=== PATIENT | male | born 1975 | race Two or more races ===

== ENCOUNTER 2024-06-06 08:33 | Inpatient (IN) | payer MEDICAID, OTHER ==
[~2024-06-06] VITALS: Ht 167.6 cm; Wt 102.2 kg
[2024-06-06 01:00] VITALS: BP 137/85; PULSE 80; RESP 13; TEMP 98.1; O2SAT 95
[2024-06-06 10:24] LABS: Basophils # (auto) 0 10 ^3/uL (0-0.2); Basophils % (auto) 0.6 % (0.0-2.0); Eosinophils # (auto) 0.1 10 ^3/uL (0-0.8); Eosinophils % (auto) 1.6 % (0.0-7.0); Hemoglobin 18.1 g/dL (13.5-17.5); Lymphocytes # (auto) 1.7 10 ^3/uL (0.4-5.4); Mean Corpuscular Hemoglobin 33.5 pg (28.0-32.0); Mean Corpuscular Hgb Conc. 35.5 g/dL (32.0-36.0); Mean Corpuscular Volume 94.4 fL (80.0-100.0); Monocytes # (auto) 0.4 10 ^3/uL (0-1.3); Monocytes % (auto) 6.8 % (0.0-12.0); Neutrophils # (auto) 3.6 10 ^3/uL (1.6-8.6); Nucleated Red Blood Cells % 0.6 %; Platelet Count (auto) 178 10^3/uL (140-450); Red Cell Distribution Width 12.7 % (11.8-14.3); White Blood Cell 5.8 10^3/uL (4.4-10.8)
[2024-06-06 10:32] LABS: Urine Bacteria None Seen /hpf (None Seen)
[2024-06-06 10:43] LABS: Urine Blood Negative /uL (Negative); Urine Clarity Clear (Clear); Urine Color Yellow (Yellow); Urine Protein, UAD Negative (Negative); Urine Specific Gravity 1.046 (1.001-1.035); Urine Urobilinogen Normal (Negative); Urine WBC <1 /hpf (0 - 3); Urine pH 5.5 (5.0-9.0)
--- NOTE | 2024-06-06 10:57 | ED.PDOC ---
History of Present Illness HPI Comments 48-year-old male who comes in with chief complaint of elevated blood sugar. The patient does not have diabetes but he states that his grandmother does. States that over the past several days he has been having some polydipsia and polyuria. The patient also states that when he stands he feels increased weakness. He denies any chest pain or shortness for breath. The patient checked his blood sugar and was 410 yesterday so he came to the emergency department's for evaluation. Chief Complaint: Hyperglycemia Time Seen by MD: 10:37 Reviewed Notes: Nurses Notes, Medications, Allergies (Allergies to penicillin) Allergies: Coded Allergies: Penicillins (Verified Allergy, Unknown, 06/06/24) Information Source: Patient Mode of Arrival: Ambulatory Severity: Moderate Timing: Days Duration: Since onset Prehospital treatment: None Associated signs and symptoms Generalized weakness with the polydipsia polyuria Past Medical History PAST MEDICAL HISTORY: Denies Surgical History: Denies all surgeries Family History Family History: Family hx of DM Social History Smoker: Non-Smoker Alcohol: Occasionally Drugs: Denies Drug Use Lives In: Home Constitutional: reports: weakness; denies: chills, diaphoresis, fatigue, fever, malaise, sweats, others EENTM: denies: blurred vision, double vision, ear bleeding, ear discharge, ear drainage, ear pain, ear ringing, eye pain, eye redness, hearing loss, mouth pain, mouth swelling, nasal discharge, nose bleeding, nose congestion, nose pain, photophobia, tearing, throat pain, throat swelling, voice changes, others Respiratory: denies: cough, hemoptysis, orthopnea, SOB at rest, shortness of breath, SOB with excertion, stridor, wheezing, others Cardiovascular: denies: chest pain, dizzy spells, diaphoresis, Dyspnea on exertion, edema, irregular heart beat, left arm pain, lightheadedness, palpitations, PND, syncope, others Gastrointestinal: denies: abdomen distended, abdominal pain, blood streaked bowels, constipated, diarrhea, dysphagia, difficulty swallowing, hematemesis, melena, nausea, poor appetite, poor fluid intake, rectal bleeding, rectal pain, vomiting, others Genitourinary: denies: burning, dysuria, flank pain, frequency, hematuria, incontinence, penile discharge, penile sore, pain, testicle pain, testicle swelling, urgency, others Neurological: denies: dizziness, fainting, headache, left sided numbness, left sided weakness, numbness, paresthesia, pre-existing deficit, right sided numbness, right sided weakness, seizure, speech problems, tingling, tremors, weakness, others Musculoskeletal: denies: back pain, gout, joint pain, joint swelling, muscle pain, muscle stiffness, neck pain, others Integumetry: denies: bruises, change in color, change in hair/nails, dryness, laceration, lesions, lumps, rash, wounds, others Allergic/Immunocompromised: denies: Difficulty Healing, Frequent Infections, Hives, Itching, others Hematologic/Lymphatic: denies: anemia, blood clots, easy bleeding, easy bruising, swollen glands, others Endocrine: reports: excessive thirst, excessive urination; denies: excessive hunger, excessive sweating, flushing, intolerance to cold, intolerance to heat, unexplained weight gain, unexplained weight loss, others Psychiatric: denies: anxiety, bipolar disorder, depression, hopeless, panic disorder, schizophrenia, sleepless, suicidal, others Physical Exam General Appearance: Mild Distress HEENT: Normal ENT Inspection, Pharynx Normal, TMs Normal Neck: Full Range of Motion, Non-Tender, Normal, Normal Inspection Respiratory: Chest Non-Tender, Lungs Clear, No Accessory Muscle Use, No Respiratory Distress, Normal Breath Sounds Cardiovascular: No Edema, No JVD, No Murmur, No Gallop, Normal Peripheral Pulses, Regular Rate/Rhythm Breast Exam: Deferred Gastrointestinal: No Organomegaly, Non Tender, No Pulsatile Mass, Normal Bowel Sounds, Soft Genitalia: Deferred Pelvic: Deferred Rectal: Deferred Extremities: No calf tenderness, Normal capillary refill, Normal inspection, Normal range of motion, Non-tender, No pedal edema Musculoskeletal : Apperance: Normal Neurologic: Alert, pie baker II-XII nml as Tested, No Motor Deficits, Normal Affect, Normal Mood, No Sensory Deficits Cerebellar Function: Normal Reflexes: Normal Skin: Dry, Normal Color, Warm Lymphatic: No Adenopathy Was a procedure done? Was a procedure done?: No Differential Dx Considerations may include: UTI, new onset diabetes, DKA X-Ray, Labs, Meds, VS Vital Signs Date Time Temp Pulse Resp B/P (MAP) Pulse Ox O2 Delivery O2 Flow Rate FiO2 12/4/24 11:14 79 16 96 Room Air 06/06/24 11:14 98.1 79 17 166/124 (138) 96 98.1 06/06/24 08:47 97.5 89 18 167/124 (138) 96 06/06/24 08:47 97.5 89 18 167/124 (138) 96 97.5 Lab Test 06/06/24 10:08 06/06/24 09:58 06/06/24 08:45 Range/Units Urine Color Yellow Yellow Urine Clarity Clear Clear Urine pH 5.5 5.0-9.0 Urine Specific [place] 1.046 H 1.001-1.035 Urine Protein Negative Negative Urine Ketones 1+ H Negative Urine Blood Negative Negative /uL Urine Nitrite Negative Negative Urine Bilirubin Negative Negative Urine Urobilinogen Normal Negative mg/dL Urine Leukocyte Esterase Negative Negative /uL Urine RBC <1 0 - 3 /hpf Urine WBC <1 0 - 3 /hpf Urine Squamous Epithelial Cells None seen <5 /hpf Urine Bacteria None seen None Seen /hpf Urine Glucose 4+ H Normal mg/dL White Blood Count 5.8 4.4-10.8 10^3/uL Red Blood Count 5.40 4.5-5.90 10^6/uL Hemoglobin 18.1 H 13.5-17.5 g/dL Hematocrit 51.0 41.0-53.0 % Mean Corpuscular Volume 94.4 80.0-100.0 fL Mean Corpuscular Hemoglobin 33.5 H 28.0-32.0 pg Mean Corpuscular Hemoglobin Concent 35.5 32.0-36.0 g/dL Red Cell Distribution Width 12.7 11.8-14.3 % Platelet Count 178 140-450 10^3/uL Mean Platelet Volume 8.0 6.9-10.8 fL Neutrophils (%) (Auto) 62.0 37.0-80.0 % Lymphocytes (%) (Auto) 29.0 10.0-50.0 % Monocytes (%) (Auto) 6.8 0.0-12.0 % Eosinophils (%) (Auto) 1.6 0.0-7.0 % Basophils (%) (Auto) 0.6 0.0-2.0 % Neutrophils # (Auto) 3.6 1.6-8.6 10 ^3/uL Lymphocytes # (Auto) 1.7 0.4-5.4 10 ^3/uL Monocytes # (Auto) 0.4 0-1.3 10 ^3/uL Eosinophils # (Auto) 0.1 0-0.8 10 ^3/uL Basophils # (Auto) 0 0-0.2 10 ^3/uL Nucleated Red Blood Cells 0.6 % Sodium Level 136 136-145 mmol/L Potassium Level 4.4 3.5-5.1 mmol/L Chloride Level 101 98-107 mmol/L Carbon Dioxide Level 29 20-31 mmol/L Anion Gap 6 5-15 Blood Urea Nitrogen 8 L 9-23 mg/dL Creatinine 0.85 0.700-1.30 mg/dL Glomerular Filtration Rate Calc 107 >90 mL/min BUN/Creatinine Ratio 9.4 L 10.0-20.0 Serum Glucose 327 H 74-106 mg/dL Calcium Level 10.4 8.7-10.4 mg/dL Total Bilirubin 1.2 H 0.2-1.0 mg/dL Aspartate Amino Transferase (AST) 108 H 13-40 U/L Alanine Aminotransferase (ALT) 201 H 7-40 U/L Alkaline Phosphatase 100 46-116 U/L Total Protein 7.5 5.7-8.2 g/dL Albumin 4.5 3.2-4.8 g/dL Beta-Hydroxybutyric Acid 0.496 H < 0.4 mmol/L POC Glucose 364 H 70-106 mg/dl Current Medications Medications (Trade) Dose Ordered Sig/Francesca Route Start Time Stop Time Status Last Admin Sodium Chloride 1,000 ml @ 1,000 mls/hr Q1H ONCE IV 06/06/24 11:00 06/06/24 11:59 DC 06/06/24 11:13 IV Hep-Lock was established The patient was given a 1 L bolus of normal saline The patient was given insulin 5 units IV push The urine test is negative for infection the positive for 4+ glucose The CBC and chemistry panel is within normal limits except for hyperglycemia at 327 The total bilirubin is elevated at 1.2 The beta hydroxybutyric acid is also elevated At this time we are going to admit the patient to the hospitalist. The patient's seems to be feeling weak and had a near syncopal episode upon standing We have discussed the findings with the patient and they are in agreement with the management. Time of 1ST Reevaluation: 10:56 Reevaluation 1ST: Unchanged Patient Education/Counseling: Diagnosis, Treatment, Prognosis Family Education/Counseling: No Family Present Departure 1 Departure Time of Disposition: 12:01 Impression: Primary Impression: New onset type 2 diabetes mellitus Additional Impression: Near syncope Disposition: 09 ADMITTED INPATIENT Admit to: Med Surg Condition: Fair Critical Care Note Critical Care Time?: No Stability Stability form required: Yes Unstable for transfer: ED Physician Assesment (Clinical assesment) Heart Score Heart Score: Heart Score Response (Comments) Value History N/A 0 EKG N/A 0 Age N/A 0 Risk Factors N/A 0 Troponin N/A 0 Total 0 ORTEGA PINEDO MD Jun 06, 2024 10:57
[2024-06-06] MEDS: SODIUM CHLORIDE 0.9% 1,000 ML IV ONE (11:13)
[2024-06-06 11:19] LABS: Albumin 4.5 g/dL (3.2-4.8); Alkaline Phosphatase 100 U/L (46-116); Anion Gap 6 (5-15); BUN/Creatinine Ratio 9.4 (10.0-20.0); Calcium 10.4 mg/dL (8.7-10.4); Carbon Dioxide 29 mmol/L (20-31); Chloride 101 mmol/L (98-107); Potassium 4.4 mmol/L (3.5-5.1); Sodium 136 mmol/L (136-145)
[2024-06-06 11:20] LABS: Bilirubin, Total 1.2 mg/dL (0.2-1.0); Total Protein 7.5 g/dL (5.7-8.2)
[2024-06-06 11:32] LABS: Alanine Aminotransferase 201 U/L (7-40); Aspartate Aminotransferase 108 U/L (13-40); Blood Urea Nitrogen 8 mg/dL (9-23); Glucose 327 mg/dL (74-106)
[2024-06-06] MEDS: InsuLIN REG 1unit/0.01ml Soln (100units/ml) IV ONE (12:20)
[2024-06-06] MEDS ORDERED: HYDROcodone-ACET 5/325MG TAB PO PRN (14:00)
[2024-06-06] MEDS ORDERED: ACETAMINOPHEN 325 MG TAB PO PRN (14:00)
[2024-06-06] MEDS ORDERED: LORazepam 2MG/ML-1ML VIAL IV PRN (14:00)
[2024-06-06] MEDS ORDERED: ONDANSETRON HCL 4 MG/2 ML VIAL IV PRN (14:00)
[2024-06-06] MEDS ORDERED: DOCUSATE SOD 100 MG CAP PO PRN (14:00)
[2024-06-06] MEDS ORDERED: DEXTROSE (50%) 50ML SYRG IV PRN (14:00)
--- NOTE | 2024-06-06 14:12 | DVHHP2 ---
History of Present Illness Reason for Visit: Hyperglycemia History of Present Illness Bj Baxter, is a 48-year-old male with no significant past medical history who comes in with complaints of elevated blood sugar levels. Patient states that he has been experiencing weakness, polydipsia, and polyuria. His grandmother is diabetic so he checked his blood sugar level last night and it was 403, prompting him to come to the hospital today. He also states that he has lost about 40 Lbs in the last 2-3 months without trying. Past Surgical History: None Family History: DM Smoke: No ALCOHOL: heavy (6-9 IPA beers/night) Drugs: None Lives: with Family Review of Systems Constitutional: Yes: Weakness, Malaise; No: Fever, Chills, Sweats, Other Eyes: No: Pain, Vision change, Conjunctivae inflammation, Eyelid inflammation, Other, Redness ENT: No: Ear pain, Ear discharge, Nose pain, Nose discharge, Nose congestion, Mouth pain, Mouth swelling, Throat pain, Throat swelling, Other Respiratory: No: Cough, Dry, Shortness of breath, SOB with excertion, Wheezing, Hemoptysis, Pleuritic Pain, Sputum, Wheezing, Other Cardiovascular: No: Chest Pain, Palpitations, Orthopnea, Paroxysmal Noc. Dyspnea, Edema, Lt Headedness, Other Gastrointestinal: No: Nausea, Vomiting, Abdominal Pain, Diarrhea, Constipation, Melena, Hematochezia, Other Genitourinary: No Dysuria; Frequency; No Incontinence, No Hematuria, No Retention; Other (Polydipsia and ployurria) Musculoskeletal: No: other, neck pain, shoulder pain, arm pain, back pain, hand pain, leg pain, foot pain Skin: No: Rash, Lesions, Jaundice, Bruising, Other Neurological: No: Weakness, Numbness, Incoordination, Change in speech, Confusion, Seizures, Other Allergies: Coded Allergies: Penicillins (Verified Allergy, Unknown, 06/06/24) Medications Current Medications Medications Dose Ordered Sig/Francesca Route Start Time Stop Time Status Last Admin Dose Admin Acetaminophen/ Hydrocodone Bitart 1 tab Q4HP PRN PO 06/06/24 14:00 Ondansetron HCl 4 mg Q4HP PRN IV 06/06/24 14:00 Docusate Sodium 100 mg BIDPRN PRN PO 06/06/24 14:00 Acetaminophen 650 mg Q6HP PRN PO 06/06/24 14:00 Diagnostic Test (Pha) 1 strip ACHS 06/06/24 17:00 UNV Insulin Human Regular HS SC 06/06/24 22:00 UNV Insulin Human Regular AC SC 06/06/24 17:00 UNV Dextrose 50 ml UD PRN IV 06/06/24 14:00 UNV Chlordiazepoxide HCl 50 mg Q8H PO 06/06/24 14:00 06/07/24 06:01 UNV Chlordiazepoxide HCl 50 mg Q12HR PO 06/07/24 10:00 06/07/24 22:01 UNV Chlordiazepoxide HCl 25 mg Q12HR PO 06/08/24 10:00 06/08/24 22:01 UNV Chlordiazepoxide HCl 25 mg QAM PO 06/09/24 07:00 06/09/24 07:01 UNV Thiamine HCl 100 mg DAILY PO 06/07/24 10:00 UNV Folic Acid 1 mg DAILY PO 06/07/24 10:00 UNV Multivitamins 1 tab DAILY PO 06/07/24 10:00 UNV Lorazepam 1 mg Q2HPRN PRN IV 06/06/24 14:00 UNV Exam Vital Signs Vital Signs Date Time Temp Pulse Resp B/P (MAP) Pulse Ox O2 Delivery O2 Flow Rate FiO2 06/06/24 11:14 79 16 96 Room Air 06/06/24 11:14 98.1 166/124 (138) 98.1 General Appearance: Alert, Oriented X3, Cooperative, moderate distress HEENT: Atraumatic, PERRLA Respiratory: Clear to auscultation, Normal air movement Cardiovascular: Regular rate, Normal S1, Normal S2 Abdominal: Normal bowel sounds, Soft, No tenderness Extremities: No clubbing, No cyanosis, No edema, Normal pulses Skin: No rashes, No breakdown, No significant lesion Neuro: Normal gait, Normal speech, Strength at 5/5 X4 ext Psych/Mental Status: Mental status NL, Mood NL Labs/Xrays Labs Test 06/06/24 10:08 06/06/24 09:58 06/06/24 08:45 Range/Units Urine Color Yellow Yellow Urine Clarity Clear Clear Urine pH 5.5 5.0-9.0 Urine Specific [place] 1.046 H 1.001-1.035 Urine Protein Negative Negative Urine Ketones 1+ H Negative Urine Blood Negative Negative /uL Urine Nitrite Negative Negative Urine Bilirubin Negative Negative Urine Urobilinogen Normal Negative mg/dL Urine Leukocyte Esterase Negative Negative /uL Urine RBC <1 0 - 3 /hpf Urine WBC <1 0 - 3 /hpf Urine Squamous Epithelial Cells None seen <5 /hpf Urine Bacteria None seen None Seen /hpf Urine Glucose 4+ H Normal mg/dL White Blood Count 5.8 4.4-10.8 10^3/uL Red Blood Count 5.40 4.5-5.90 10^6/uL Hemoglobin 18.1 H 13.5-17.5 g/dL Hematocrit 51.0 41.0-53.0 % Mean Corpuscular Volume 94.4 80.0-100.0 fL Mean Corpuscular Hemoglobin 33.5 H 28.0-32.0 pg Mean Corpuscular Hemoglobin Concent 35.5 32.0-36.0 g/dL Red Cell Distribution Width 12.7 11.8-14.3 % Platelet Count 178 140-450 10^3/uL Mean Platelet Volume 8.0 6.9-10.8 fL Neutrophils (%) (Auto) 62.0 37.0-80.0 % Lymphocytes (%) (Auto) 29.0 10.0-50.0 % Monocytes (%) (Auto) 6.8 0.0-12.0 % Eosinophils (%) (Auto) 1.6 0.0-7.0 % Basophils (%) (Auto) 0.6 0.0-2.0 % Neutrophils # (Auto) 3.6 1.6-8.6 10 ^3/uL Lymphocytes # (Auto) 1.7 0.4-5.4 10 ^3/uL Monocytes # (Auto) 0.4 0-1.3 10 ^3/uL Eosinophils # (Auto) 0.1 0-0.8 10 ^3/uL Basophils # (Auto) 0 0-0.2 10 ^3/uL Nucleated Red Blood Cells 0.6 % Sodium Level 136 136-145 mmol/L Potassium Level 4.4 3.5-5.1 mmol/L Chloride Level 101 98-107 mmol/L Carbon Dioxide Level 29 20-31 mmol/L Anion Gap 6 5-15 Blood Urea Nitrogen 8 L 9-23 mg/dL Creatinine 0.85 0.700-1.30 mg/dL Glomerular Filtration Rate Calc 107 >90 mL/min BUN/Creatinine Ratio 9.4 L 10.0-20.0 Serum Glucose 327 H 74-106 mg/dL Calcium Level 10.4 8.7-10.4 mg/dL Total Bilirubin 1.2 H 0.2-1.0 mg/dL Aspartate Amino Transferase (AST) 108 H 13-40 U/L Alanine Aminotransferase (ALT) 201 H 7-40 U/L Alkaline Phosphatase 100 46-116 U/L Total Protein 7.5 5.7-8.2 g/dL Albumin 4.5 3.2-4.8 g/dL Beta-Hydroxybutyric Acid 0.496 H < 0.4 mmol/L POC Glucose 364 H 70-106 mg/dl Assessment/Plan Assessment/Plan Assessment: New onset type 2 diabetes mellitus, ETOH dependence, Possible ETOH withdrawal, Transaminitis, Plan: Admit to Tele, Accu checks Q AC&HS with sliding scale, Long acting insulin daily, A1c, Librium tapering dose, Ativan PRN, ETOH withdrawal protocol, IV hydration, Liver ultrasound, Plan discussed with: Patient, Other (grandmother) My Orders Orders - MARIA R STALLWORTH Procedure Category Date Status Time Code Status CODE 06/06/24 Transmitted 13:49 2 Gm Sodium Diet DIET 06/06/24 Transmitted Dinner Hydrocodone-Acet PHA 06/06/24 In Process 5/325mg Tab ([place] 14:00 Ondansetron Hcl PHA 06/06/24 In Process (Zofran) 14:00 Docusate Sodium PHA 06/06/24 In Process Capsule (Colace 14:00 Complete Blood Count LAB 06/07/24 Verified 04:00 Comprehensive LAB 06/07/24 Verified Metabolic Panel 04:00 Condition: Serious BISMARK 06/06/24 In Process 13:49 Acetaminophen Tablet PHA 06/06/24 In Process (Tylenol Tablet) 14:00 Glucose Blood PHA 06/06/24 Logged (Accu-Chek Comfort 17:00 Insulin R (Human) PHA 06/06/24 Logged (Insulin R) 22:00 Insulin R (Human) PHA 06/06/24 Logged (Insulin R) 17:00 Dextrose 50% Syringe PHA 06/06/24 Logged 14:00 Chlordiazepoxide Hcl PHA 06/06/24 Logged Capsule (Librium Ca 14:00 Chlordiazepoxide Hcl PHA 06/07/24 Logged Capsule (Librium Ca 10:00 Chlordiazepoxide Hcl PHA 06/08/24 Logged Capsule (Librium Ca 10:00 Chlordiazepoxide Hcl PHA 06/09/24 Logged Capsule (Librium Ca 07:00 Blood Alcohol LAB 06/06/24 Logged 13:53 Drug Screen LAB 06/06/24 Logged 13:53 Urinalysis LAB 06/06/24 Logged 13:53 Sodium Chloride 0.9% PHA 06/06/24 Logged 14:00 Magnesium LAB 06/06/24 Logged 13:53 Thiamine Tab PHA 06/07/24 Logged 10:00 Folic Acid Tablet PHA 06/07/24 Logged 10:00 Multiple Vitamin PHA 06/07/24 Logged Tablet (Mvi Tab) 10:00 Thiamine Tab PHA 06/06/24 Logged 14:00 Multiple Vitamin PHA 06/06/24 Logged Tablet (Mvi Tab) 14:00 Folic Acid Tablet PHA 06/06/24 Logged 14:00 Lorazepam 2mg/Ml Inj PHA 06/06/24 Logged (Ativan Inj) 14:00 Etoh Withdrawal BISMARK 06/06/24 In Process Assessment 13:53 Etoh Withdrawal BISMARK 06/06/24 In Process Assessment 13:53 Admit ADMIT 06/06/24 Transmitted 13:57 LIVER US 06/06/24 Logged 13:58 Insulin Lantus PHA 06/06/24 Transmitted (Glargine) (Lantus) 22:00 Date of Service: Jun 06, 2024 Billing Provider: MARIA R STALLWORTH Common Visit Codes: [id number] INP/OBS CARE (MOD) MARIA R STALLWORTH Jun 06, 2024 14:12
[2024-06-06 14:54] LABS: Magnesium 1.9 mg/dL (1.6-2.6)
[2024-06-06 14:59] LABS: Amphetamine Screen, Urine Neg (NEGATIVE); Barbiturate Scree,Urine Neg (NEGATIVE); Benzodiazephine Screen, Urine Neg (NEGATIVE); Cannabinoid Screen, Urine Neg (NEGATIVE); Cocaine Screen, Urine Neg (NEGATIVE); Opiate Scree,Urine Neg (NEGATIVE); Phencyclidine Screen, Urine Neg (NEGATIVE)
[2024-06-06 15:00] LABS: Blood Alcohol < 3.0 mg/dL (<10)
--- NOTE | 2024-06-06 15:28 | DVH ---
EXAM: US LIVER CLINICAL HISTORY: elevated liver enzymes TECHNIQUE: Grayscale and limited color flow doppler ultrasound of the right upper quadrant is perfor med. COMPARISON: None Findings: Liver measures 19.7 cm in length with increased echotexture and contour. No evidence of focal hepatic lesions or intra- or extrahepatic ductal dilatation. In the right hepatic lobe, there is a 1.0 x 0.6 x 0.8 cm anechoic lesion. Common bile duct measures 0.4 cm in diameter. Normal hepatopedal flow noted within the portal vein. N o perihepatic free fluid is noted. Gallbladder appears within normal limits with gallbladder wall thickness measuring 0.2 cm. No evidenc e of shadowing calculi, biliary sludge or pericholecystic fluid. Negative sonographic Gonzalez's sign. Pancreas not well-visualized due to overlying bowel gas. Right kidney measures 11.6 cm with normal contours, echotexture and cortical thickness. No evidence o f hydronephrosis, calculi, cystic or solid renal lesions. Partially visualized inferior vena cava unremarkable. Impression: 1. No evidence of acute right upper quadrant abnormalities. 2. Hepatomegaly with hepatic steatosis. 3. Hepatic cyst.
[2024-06-06] MEDS: SODIUM CHLORIDE 0.9% 1,000 ML IVB ONE (15:35)
[2024-06-06 15:40] VITALS: PULSE 74; RESP 18; O2SAT 95
[2024-06-06] MEDS: FOLIC ACID 1 MG TAB PO ONE (15:55)
[2024-06-06] MEDS: THIAMINE HCL 100 MG TAB PO ONE (15:55)
[2024-06-06] MEDS: chlordiazePOXIDE HCL 25 MG CAP PO SCH (15:56)
[2024-06-06] MEDS: MULTIPLE VITAMIN TAB PO ONE (15:57)
[2024-06-06] MEDS: ACCU-CHEK COMFORT CURVE STRIP VI SCH (17:03)
[2024-06-06] MEDS: InsuLIN REG 1unit/0.01ml Soln (100units/ml) SC SCH ×2 (17:06→22:00)
[2024-06-06 19:58] VITALS: BP 159/97; PULSE 74; RESP 18; TEMP 98.2; O2SAT 94
[2024-06-06] MEDS: INSULIN LANTUS (GLARGINE) 1 /0.01ml (100units/ml) SC SCH (22:00)
[2024-06-06 23:18] VITALS: PULSE 76; RESP 20
[2024-06-07 05:00] VITALS: BP 144/94; PULSE 70; RESP 14; TEMP 97.9; O2SAT 98
[2024-06-07 06:41] LABS: Albumin 3.9 g/dL (3.2-4.8); Alkaline Phosphatase 74 U/L (46-116); Anion Gap 9 (5-15); BUN/Creatinine Ratio 11.3 (10.0-20.0); Carbon Dioxide 25 mmol/L (20-31); Chloride 106 mmol/L (98-107); Sodium 140 mmol/L (136-145); Total Protein 6.3 g/dL (5.7-8.2)
[2024-06-07 06:45] LABS: Alanine Aminotransferase 157 U/L (7-40); Aspartate Aminotransferase 74 U/L (13-40); Blood Urea Nitrogen 7 mg/dL (9-23); Glucose 233 mg/dL (74-106); Potassium 3.4 mmol/L (3.5-5.1)
[2024-06-07 07:07] LABS: Basophils # (auto) 0 10 ^3/uL (0-0.2); Lymphocytes # (auto) 1.7 10 ^3/uL (0.4-5.4)
[2024-06-07 07:11] LABS: Basophils % (auto) 0.5 % (0.0-2.0); Eosinophils # (auto) 0.1 10 ^3/uL (0-0.8); Eosinophils % (auto) 3.2 % (0.0-7.0); Hemoglobin 16.7 g/dL (13.5-17.5); Lymphocytes % (auto) 36.6 % (10.0-50.0); Mean Corpuscular Hgb Conc. 36.4 g/dL (32.0-36.0); Mean Corpuscular Volume 93.5 fL (80.0-100.0); Monocytes # (auto) 0.4 10 ^3/uL (0-1.3); Monocytes % (auto) 7.6 % (0.0-12.0); Neutrophils # (auto) 2.4 10 ^3/uL (1.6-8.6); Neutrophils % (auto) 52.1 % (37.0-80.0); Nucleated Red Blood Cells % 0.3 %; Platelet Count (auto) 140 10^3/uL (140-450); Red Blood Cells 4.92 10^6/uL (4.5-5.90); Red Cell Distribution Width 12.6 % (11.8-14.3); White Blood Cell 4.6 10^3/uL (4.4-10.8)
[2024-06-07 08:00] VITALS: PULSE 80; PULSE 82; RESP 18; O2SAT 93
[2024-06-07] MEDS: chlordiazePOXIDE HCL 25 MG CAP PO SCH (09:39)
[2024-06-07] MEDS: MULTIPLE VITAMIN TAB PO SCH (09:39)
[2024-06-07] MEDS: THIAMINE HCL 100 MG TAB PO SCH (09:39)
[2024-06-07] MEDS: FOLIC ACID 1 MG TAB PO SCH (09:40)
[2024-06-07 11:00] LABS: Hepatitis B Surface Antibody Negative (Negative); Hepatitis B Surface Antigen Negative (Negative); Hepatitis C Antibody Negative (Negative)
[2024-06-07] MEDS: POTASSIUM EFFERVESENT TAB 25 MEQ PO ONE (11:10)
[2024-06-07] MEDS: LISINOPRIL 5 MG TAB PO SCH (11:11)
[2024-06-07] MEDS: INSULIN LANTUS (GLARGINE) 1 /0.01ml (100units/ml) SC SCH (11:13)
[2024-06-07 13:00] VITALS: BP 149/104; PULSE 85; RESP 18; TEMP 97.5; O2SAT 97
[2024-06-07] MEDS: CYANOCOBALAMIN 500 MCG TAB PO ONE (13:22)
[2024-06-07 15:32] VITALS: BP 132/89; PULSE 86; RESP 18; TEMP 36.4; O2SAT 97
[2024-06-07] MEDS ORDERED: INSLANTI SC (17:44)
[2024-06-07] MEDS ORDERED: METF-489 PO (17:44)
[2024-06-07] MEDS ORDERED: BLOO1KIT76 XX (17:44)
[2024-06-07] MEDS ORDERED: LISI2.5T47 PO (17:50)
[2024-06-07] MEDS ORDERED: EMPA1TAB PO (17:50)
--- NOTE | 2024-06-07 17:51 | DVHDSRES ---
Discharge Summary Date of Admission Resident Creating Document: JUAN CARLOS AZUL RESIDENT Jun 06, 2024 at 13:49 Date of Discharge: Jun 07, 2024 Admitting Diagnosis polydipsia polyuria numbness hyperglycemia Labs/Diagnostic Data: Laboratory Results Test 06/07/24 16:42 06/07/24 05:42 06/06/24 14:14 06/06/24 10:08 POC Glucose 321 mg/dl (70-106) White Blood Count 4.6 10^3/uL (4.4-10.8) Red Blood Count 4.92 10^6/uL (4.5-5.90) Hemoglobin 16.7 g/dL (13.5-17.5) Hematocrit 46.0 % (41.0-53.0) Mean Corpuscular Volume 93.5 fL (80.0-100.0) Mean Corpuscular Hemoglobin 34.0 pg (28.0-32.0) Mean Corpuscular Hemoglobin Concent 36.4 g/dL (32.0-36.0) Red Cell Distribution Width 12.6 % (11.8-14.3) Platelet Count 140 10^3/uL (140-450) Mean Platelet Volume 8.4 fL (6.9-10.8) Neutrophils (%) (Auto) 52.1 % (37.0-80.0) Lymphocytes (%) (Auto) 36.6 % (10.0-50.0) Monocytes (%) (Auto) 7.6 % (0.0-12.0) Eosinophils (%) (Auto) 3.2 % (0.0-7.0) Basophils (%) (Auto) 0.5 % (0.0-2.0) Neutrophils # (Auto) 2.4 10 ^3/uL (1.6-8.6) Lymphocytes # (Auto) 1.7 10 ^3/uL (0.4-5.4) Monocytes # (Auto) 0.4 10 ^3/uL (0-1.3) Eosinophils # (Auto) 0.1 10 ^3/uL (0-0.8) Basophils # (Auto) 0 10 ^3/uL (0-0.2) Nucleated Red Blood Cells 0.3 % Sodium Level 140 mmol/L (136-145) Potassium Level 3.4 mmol/L (3.5-5.1) Chloride Level 106 mmol/L (98-107) Carbon Dioxide Level 25 mmol/L (20-31) Anion Gap 9 (5-15) Blood Urea Nitrogen 7 mg/dL (9-23) Creatinine 0.62 mg/dL (0.700-1.30) Glomerular Filtration Rate Calc 117 mL/min (>90) BUN/Creatinine Ratio 11.3 (10.0-20.0) Serum Glucose 233 mg/dL (74-106) Calcium Level 10.0 mg/dL (8.7-10.4) Total Bilirubin 1.0 mg/dL (0.2-1.0) Aspartate Amino Transferase (AST) 74 U/L (13-40) Alanine Aminotransferase (ALT) 157 U/L (7-40) Alkaline Phosphatase 74 U/L (46-116) Total Protein 6.3 g/dL (5.7-8.2) Albumin 3.9 g/dL (3.2-4.8) Hepatitis B Surface Antigen Negative (Negative) Hepatitis B Surface Antibody Negative (Negative) Hepatitis C Antibody Negative (Negative) Magnesium Level 1.9 mg/dL (1.6-2.6) Plasma/Serum Blood Alcohol < 3.0 mg/dL (<10) Urine Color Yellow (Yellow) Urine Clarity Clear (Clear) Urine pH 5.5 (5.0-9.0) Urine Specific Potter 1.046 (1.001-1.035) Urine Protein Negative (Negative) Urine Ketones 1+ (Negative) Urine Blood Negative /uL (Negative) Urine Nitrite Negative (Negative) Urine Bilirubin Negative (Negative) Urine Urobilinogen Normal mg/dL (Negative) Urine Leukocyte Esterase Negative /uL (Negative) Urine RBC <1 /hpf (0 - 3) Urine WBC <1 /hpf (0 - 3) Urine Squamous Epithelial Cells None seen /hpf (<5) Urine Bacteria None seen /hpf (None Seen) Urine Glucose 4+ mg/dL (Normal) Urine Opiates Screen Neg (NEGATIVE) Urine Fentanyl Screen Neg (NEGATIVE) Urine Barbiturates Screen Neg (NEGATIVE) Urine Phencyclidine Screen Neg (NEGATIVE) Urine Amphetamines Screen Neg (NEGATIVE) Urine Benzodiazepines Screen Neg (NEGATIVE) Urine Cocaine Screen Neg (NEGATIVE) Urine Cannabinoids Screen Neg (NEGATIVE) Test 06/06/24 09:58 Hemoglobin A1c 12.0 % A1C (<5.7) Beta-Hydroxybutyric Acid 0.496 mmol/L (< 0.4) Other Laboratory Tests 06/07/24 05:42 Brief Hx & Hospital Course: Mr. Sahil Roman, is a 48-year-old male with no significant past medical history who presented to the ED after having found to have an elevated blood sugar over 403. However, about a one month earlier, patient said he started experiencing polyuria, polydipsia and weakness. He denied being on any medication or having any tumor. Patient admits to heavy alcohol consumption and he has had unintentional 40Ib weight lost in the last 2-3 months. Vitals in the ED revealed BP: 167/124--> 159/97--> 143/99. Lab showed serum glucose [id number] and Hgb A1c : 12, Potassium of 3.2 Review of system Constitutional: Yes: Weakness, Malaise; No: Fever, Chills, Sweats, Other Eyes: No: Pain, Vision change, Conjunctivae inflammation, Eyelid inflammation, Other, Redness ENT: No: Ear pain, Ear discharge, Nose pain, Nose discharge, Nose congestion, Mouth pain, Mouth swelling, Throat pain, Throat swelling, Other Respiratory: No: Cough, Dry, Shortness of breath, SOB with excertion, Wheezing, Hemoptysis, Pleuritic Pain, Sputum, Wheezing, Other Cardiovascular: No: Chest Pain, Palpitations, Orthopnea, Paroxysmal Noc. Dyspnea, Edema, Lt Headedness, Other Gastrointestinal: No: Nausea, Vomiting, Abdominal Pain, Diarrhea, Constipation, Melena, Hematochezia, Other Genitourinary: No Dysuria; Frequency; No Incontinence, No Hematuria, No Retention; Other (Polydipsia and ployurria) Musculoskeletal: No: other, neck pain, shoulder pain, arm pain, back pain, hand pain, leg pain, foot pain Skin: No: Rash, Lesions, Jaundice, Bruising, Other Neurological: No: Weakness, Numbness, Incoordination, Change in speech, Confusion, Seizures, Other Examination General Appearance: Alert, Oriented X3, Cooperative, moderate distress HEENT: Atraumatic, PERRLA Respiratory: Clear to auscultation, Normal air movement Cardiovascular: Regular rate, Normal S1, Normal S2 Abdominal: Normal bowel sounds, Soft, No tenderness Extremities: No clubbing, No cyanosis, No edema, Normal pulses Skin: No rashes, No breakdown, No significant lesion Neuro: Normal gait, Normal speech, Strength at 5/5 X4 ext Psych/Mental Status: Mental status NL, Mood NL Diagnoses New onset diabetes melitus type II Hypertension New onset type 2 diabetes mellitus, ETOH dependence, Possible ETOH withdrawal, Transaminitis Hypokalemia Obesity From out medical standpoint, patient is stable for discharge home on medications and devices 1.Metformin 500mg, lantus 10 unit at night, and Jardiance 10mg daily 2. Glucometer 2. Lisinopril 10 mg daily Goal of care and discharge plan discussed for more than 45 minutes. Disharge plans discussed with Dr. Horton. Operations or Procedures PATIENT: ERIKA OSEGUERA ACCT: [id number] UNIT: [id number] : 1975 [facility]GE / SEX: 48 / M ADM STATUS: ADM IN SERVICE [id number] ORDERING PHYSICIAN: MARIA R STALLWORTH PROCEDURE(s): LIVUS - LIVER REASON: elevated liver enzymes ORDER NUMBER(s): [id number], ACCESSION NUMBER(s): [id number] EXAM: US LIVER CLINICAL HISTORY: elevated liver enzymes TECHNIQUE: Grayscale and limited color flow doppler ultrasound of the right upper quadrant is performed. COMPARISON: None Findings: Liver measures 19.7 cm in length with increased echotexture and contour. No evidence of focal hepatic lesions or intra- or extrahepatic ductal dilatation. In the right hepatic lobe, there is a 1.0 x 0.6 x 0.8 cm anechoic lesion. Common bile duct measures 0.4 cm in diameter. Normal hepatopedal flow noted within the portal vein. No perihepatic free fluid is noted. Gallbladder appears within normal limits with gallbladder wall thickness measuring 0.2 cm. No evidence of shadowing calculi, biliary sludge or pericholecystic fluid. Negative sonographic Gonzalez's sign. Pancreas not well-visualized due to overlying bowel gas. Right kidney measures 11.6 cm with normal contours, echotexture and cortical thickness. No evidence of hydronephrosis, calculi, cystic or solid renal lesions. Partially visualized inferior vena cava unremarkable. Impression: 1. No evidence of acute right upper quadrant abnormalities. 2. Hepatomegaly with hepatic steatosis. 3. Hepatic cyst. ATED BY: ANJELICA FLORES DO DICTATED DATE/TIME: 06/06/24 1526 Condition at Discharge: Stable Final Diagnosis/Problems List New onset diabetes melitus type II Hypertension New onset type 2 diabetes mellitus, ETOH dependence, Possible ETOH withdrawal, Transaminitis Hypokalemia Obesity Discharge Disposition: Home Discharge Instruct/Medications Diet: Regular Activity: No Restrictions, As Tolerated Follow Up/Referral: fu with in [facility] in 1 week Medications: continue home meds as prescribed continue metformin, insulin and lisinopril Discharge Statement: "Patient was advised to return to the ER or call 911 if any headaches, dizziness, shortness of breath, chest pain, abdominal pain, bleeding, fevers, or worsening of medical condition. Patient was counseled about treatment plan, medications, possible side effects, patientverbalized understanding. All questions were answered to the best of my ability. This discharge took greater then 30 minutes in planning, reviewing documentation, counseling the patient, and discussing with other team members." ASSESSMENT ASSESSMENT Assessment uncontrolled type 2 diabetes Date of Service: Jun 07, 2024 Billing Provider: TK ROD MD Common Visit Codes: 61665-CKO/OBS DISCH DAY >30min JUAN CARLOS AZUL RESIDENT Jun 07, 2024 17:51 TK ROD MD Jun 11, 2024 00:06
[2024-06-08] MEDS ORDERED: chlordiazePOXIDE HCL 25 MG CAP PO SCH (10:00)
[2024-06-09] MEDS ORDERED: chlordiazePOXIDE HCL 25 MG CAP PO SCH (07:00)
== END 2024-06-07 17:25 | disposition home or self-care (01) | DRG 420 ==
LOC: ER 08:33 → OVERFLOW 13:49 → TELE-WESTW 22:20
PROVIDERS: ADMIT Student in an Organized Health Care Education/Training Program; ATTEND Student in an Organized Health Care Education/Training Program
DX: E11.65 Type 2 diabetes mellitus with hyperglycemia (principal); E66.9 Obesity, unspecified; F10.239 Alcohol dependence with withdrawal, unspecified; I10 Essential (primary) hypertension; R74.01 Elevation of levels of liver transaminase levels; E87.6 Hypokalemia; Z88.0 Allergy status to penicillin; Z83.3 Family history of diabetes mellitus; Z68.36 Body mass index [BMI] 36.0-36.9, adult; Y90.0 Blood alcohol level of less than 20 mg/100 ml
CPT/HCPCS: 36415; 76705; 80053; 80307; 80320; 81001; 82010; 82962; 83036; 83735; 85025; 86706; 86803; 87081; 87340; 96361; 96374; G0378; J1815

== ENCOUNTER → 2024-11-27 | Outpatient (CLI) | payer MEDICAID ==
[~2024-11-27] MED LIST: BLOO1KIT76 XX; EMPA1TAB PO; INSLANTI SC; LISI2.5T47 PO; METF-489 PO
[2024-11-27 08:12] LABS: Alanine Aminotransferase 81 U/L (7-40); Alkaline Phosphatase 66 U/L (46-116); Aspartate Aminotransferase 51 U/L (13-40)
== END | disposition home or self-care (01) ==
LOC: LAB 06:30
PROVIDERS: ATTEND Internal Medicine
DX: K76.0 Fatty (change of) liver, not elsewhere classified (principal)
CPT/HCPCS: 36415; 84075; 84450; 84460

== ENCOUNTER → 2024-12-31 | Outpatient (CLI) | payer MEDICAID ==
[2024-12-31 12:14] LABS: Aspartate Aminotransferase 39 U/L (13-40)
[2024-12-31 12:17] LABS: Alanine Aminotransferase 52 U/L (7-40); Alkaline Phosphatase 69 U/L (46-116)
== END | disposition home or self-care (01) ==
LOC: LAB 06:26
PROVIDERS: ATTEND Internal Medicine
DX: R16.0 Hepatomegaly, not elsewhere classified (principal)
CPT/HCPCS: 36415; 84075; 84450; 84460

== ENCOUNTER 2025-05-09 07:11 | Outpatient (CLI) | payer MEDICAID ==
[2025-05-09 08:10] LABS: Microalb/Creat Ratio, Urine 6.00
[2025-05-09 08:14] LABS: Albumin 4.3 g/dL (3.2-4.8); Alkaline Phosphatase 59 U/L (46-116); Anion Gap 11 (5-15); BUN/Creatinine Ratio 13.9 (10.0-20.0); Blood Urea Nitrogen 11 mg/dL (9-23); Calcium 9.2 mg/dL (8.7-10.4); Carbon Dioxide 26 mmol/L (20-31); Chloride 103 mmol/L (98-107); Potassium 4.1 mmol/L (3.5-5.1); Sodium 140 mmol/L (136-145); Total Protein 6.7 g/dL (5.7-8.2)
[2025-05-09 08:33] LABS: Bilirubin, Total 0.8 mg/dL (0.2-1.0)
[2025-05-09 08:34] LABS: Alanine Aminotransferase 91 U/L (7-40); Glucose 128 mg/dL (74-106)
== END 2025-05-09 17:00 | disposition home or self-care (01) ==
LOC: LAB 07:11
PROVIDERS: ATTEND Internal Medicine
DX: E11.65 Type 2 diabetes mellitus with hyperglycemia (principal)
CPT/HCPCS: 36415; 80053; 82043; 82570; 83036